=== PATIENT | male | born 1950 | race Caucasian/White ===

== ENCOUNTER → 2024-06-03 15:18 | Outpatient (REF) | payer MEDICARE, OTHER, SELFPAY | LOC: RCS 15:18 | PROVIDERS: ATTENDING PHYSICIAN Internal Medicine Critical Care Medicine; FAMILY PHYSICIAN Family Medicine | DX: R06.09 Other forms of dyspnea (principal) | CPT/HCPCS: 71046; 93306 ==

== ENCOUNTER → 2024-10-26 13:11 | Outpatient (REF) | payer MEDICARE, OTHER, SELFPAY ==
[2024-10-26 13:54] LABS: % Basophils 0.5 % (0-2); % Eosinophils 4.2 % (0-6); % Immature Granulocytes 0.3 % (0-0.5); % Lymphocytes 24.4 % (20.5-51.1); % Monocytes 7.7 % (1.7-9.3); % Neutrophils 62.9 % (42.2-75.2); Absolute Eosinophils 0.3 10^3/uL (0-0.7); Absolute Lymphocytes 1.9 10^3/uL (1.2-3.4); Absolute Monocytes 0.6 10^3/uL (0.1-0.6); Absolute Neutrophils 4.8 10^3/uL (1.4-6.5); Hematocrit 43.5 % (39.0-52.0); Hemoglobin 13.9 g/dL (13.0-18.0); Mean Corpuscular Hgb 30.9 pg (27.0-31.0); Mean Corpuscular Volume 96.7 fL (80.0-94.0); Mean Platelet Volume 10.6 fL (7.4-10.4); Nucleated Red Blood Cells % 0 % (-); Platelet Count 159 10^3/uL (130-400); Red Cell Dist. Width 13.3 % (11.5-14.5); White Blood Cell Count 7.6 10^3/uL (4.8-10.8)
[2024-10-26 14:20] LABS: ALT (SGPT) 24 U/L (0-50); AST (SGOT) 28 U/L (17-59); Albumin 4.2 g/dl (3.5-5.0); Alkaline Phosphatase 71 U/L (38-126); Blood Urea Nitrogen 23 mg/dl (9-20); Calcium 9.6 mg/dl (8.4-10.2); Carbon Dioxide 27 mmol/L (22-30); Chloride 106 mmol/L (98-107); Glucose 86 mg/dl (70-99); HDL Cholesterol 70 mg/dl; LDL Cholesterol, Calculated 80 mg/dl; Potassium 4.4 mmol/L (3.5-5.1); Sodium 143 mmol/L (135-145); Total Bilirubin 0.4 mg/dl (0.2-1.3); Total Cholesterol 163 mg/dl (50-199); Total Protein 6.9 g/dl (6.3-8.2); Triglyceride 67 mg/dl (10-149); Very Low Density Lipoprotein 13 mg/dl (0-30); eGFR > 60.00
[2024-10-26 14:47] LABS: PSA, Total - Screen 1.43 ng/ml (0.0-4.0); TSH 2.12 uIU/ml (0.47-4.68)
== END ==
LOC: REG 13:11
PROVIDERS: ATTENDING PHYSICIAN Family Medicine
DX: Z13.220 Encounter for screening for lipoid disorders (principal); J44.9 Chronic obstructive pulmonary disease, unspecified; E78.2 Mixed hyperlipidemia; I10 Essential (primary) hypertension; Z12.5 Encounter for screening for malignant neoplasm of prostate
CPT/HCPCS: 36415; 80053; 80061; 84443; 85025; G0103

== ENCOUNTER → 2025-01-15 15:34 | Outpatient (REF) | payer MEDICARE, OTHER, SELFPAY | LOC: PAVMRI 15:34 | PROVIDERS: ATTENDING PHYSICIAN Physician Assistant; FAMILY PHYSICIAN Family Medicine | DX: M54.16 Radiculopathy, lumbar region (principal) | CPT/HCPCS: 72148 ==

== ENCOUNTER → 2025-04-06 15:19 | Outpatient (REF) | payer MEDICARE, OTHER, SELFPAY ==
[2025-04-06 17:18] LABS: Free T4 0.96 ng/dl (0.78-2.19)
[2025-04-06 17:32] LABS: TSH 1.41 uIU/ml (0.47-4.68)
[2025-04-06 18:19] LABS: Folate > 20.0 ng/ml (2.76-20); Vitamin B12 514 pg/ml (239-931)
== END ==
LOC: REG 15:19
PROVIDERS: ATTENDING PHYSICIAN Specialist; FAMILY PHYSICIAN Family Medicine
DX: E03.9 Hypothyroidism, unspecified (principal); D51.8 Other vitamin B12 deficiency anemias
CPT/HCPCS: 36415; 82607; 82746; 84439; 84443

== ENCOUNTER → 2025-05-17 14:26 | Outpatient (REF) | payer MEDICARE, OTHER, SELFPAY ==
[2025-05-17 16:04] LABS: Urine Albumin Negative (Neg - Trace); Urine Bilirubin Negative (Negative); Urine Character Clear (Clear); Urine Color Yellow; Urine Glucose Negative (Negative); Urine Ketone Negative (Negative); Urine Leukocyte Negative (Negative); Urine Nitrite Negative (Negative); Urine Occult Blood Negative (Negative); Urine Urobilinogen Negative (Neg - 1+)
== END ==
LOC: REG 14:26
PROVIDERS: ATTENDING PHYSICIAN Family Medicine
DX: R35.0 Frequency of micturition (principal); R35.1 Nocturia
CPT/HCPCS: 81003

== ENCOUNTER → 2025-08-13 10:35 | Outpatient (REF) | payer MEDICARE, OTHER, SELFPAY | LOC: RAD 10:35 | PROVIDERS: ATTENDING PHYSICIAN Internal Medicine Critical Care Medicine; FAMILY PHYSICIAN Family Medicine | DX: R53.83 Other fatigue (principal) | CPT/HCPCS: 71046 ==

== ENCOUNTER → 2025-08-24 11:01 | Outpatient (REF) | payer MEDICARE, OTHER, SELFPAY | LOC: HWRAD 11:01 | PROVIDERS: ATTENDING PHYSICIAN Internal Medicine Critical Care Medicine; FAMILY PHYSICIAN Family Medicine | DX: J44.9 Chronic obstructive pulmonary disease, unspecified (principal) | CPT/HCPCS: 71250 ==

== ENCOUNTER 2025-08-31 10:14 | Outpatient (RCR) | payer MEDICARE, OTHER, SELFPAY | END 2025-08-31 23:59 | disposition home or self-care (01) | LOC: RPT 10:14 | PROVIDERS: ATTENDING PHYSICIAN Physical Medicine & Rehabilitation; FAMILY PHYSICIAN Family Medicine | DX: M25.551 Pain in right hip (principal); M16.11 Unilateral primary osteoarthritis, right hip; M25.851 Other specified joint disorders, right hip; Z73.6 Limitation of activities due to disability | CPT/HCPCS: 97110; 97161 ==